=== PATIENT | male | born 1970 | race Caucasian/White ===

== ENCOUNTER → 2022-12-08 13:31 | Outpatient (BNVA) | payer BC, MEDICAID, SELFPAY | PROVIDERS: Referring Provider Nurse Practitioner Family; Visit Provider Specialist | DX: M25.561 Pain in right knee (principal); M25.562 Pain in left knee; G89.29 Other chronic pain; G57.93 Unspecified mononeuropathy of bilateral lower limbs | CPT/HCPCS: 73560; 73565; 99204 ==